=== PATIENT | female | born 1990 | race Hispanic/Latino ===

== ENCOUNTER → 2022-01-25 13:34 | Outpatient (CLI) | payer OTHER, SELFPAY ==
[2022-01-25 14:47] LABS: HCG Quantitative /Beta subunit 9168.6 mIU/mL
== END ==
PROVIDERS: Referring Provider Obstetrics & Gynecology; Visit Provider Obstetrics & Gynecology
DX: N96 Recurrent pregnancy loss (principal); O26.899 Other specified pregnancy related conditions, unspecified trimester; R10.2 Pelvic and perineal pain
CPT/HCPCS: 36415; 84702

== ENCOUNTER → 2022-01-27 13:38 | Outpatient (CLI) | payer OTHER, SELFPAY ==
[2022-01-27 14:56] LABS: HCG Quantitative /Beta subunit 12372 mIU/mL
== END ==
PROVIDERS: Referring Provider Obstetrics & Gynecology; Visit Provider Obstetrics & Gynecology
DX: N96 Recurrent pregnancy loss (principal); O26.899 Other specified pregnancy related conditions, unspecified trimester; R10.2 Pelvic and perineal pain
CPT/HCPCS: 36415; 84702

== ENCOUNTER 2022-01-29 22:42 | Emergency (ER) | payer OTHER, SELFPAY ==
[2022-01-29 22:47] VITALS: BP 136/74; PULSE 72; RESP 16; TEMP 36.2; O2SAT 99; BMI 26.5
--- NOTE | 2022-01-29 23:06 | DI.US.S_ITS ---
PROCEDURE: US OB <= 14 WEEKS FETUS INDICATIONS: 6 weeks, bright red blood vaginal bleeding. OUTSIDE/PRIOR DATING DATA: Last menstrual period (LMP): 12/15/2021. LMP-based estimated date of delivery (TIMMY): 09/21/2022. First dating scan (date and location): 01/28/2022. Estimated date of delivery (TIMMY) from first dating scan: 09/22/2022. TECHNIQUE: Real-time scanning was performed of the fetus and maternal pelvic organs, with image documentation. Endovaginal scanning was also performed to better visualize the fetus and maternal ovaries. COMPARISON: [facility], US, US PELVIC COMPLETE, 01/28/2022, 10:23. FINDINGS: Embryo: [place]-rump length measuring 0.42 cm. Gestational age 6 weeks 1 day. Heart rate: 75 bpm. The yolk sac is not identified. The gestational sac is slightly irregular. Maternal organs: Ovaries are within normal limits. IMPRESSION: 1. Sarkar living intrauterine at 6 weeks 1 day based on today's crown rump length. heart rate 75 bpm is slower than expected. The gestational sac is somewhat irregular. 2. No perigestational hemorrhage. Recommend short-term follow-up OB ultrasound. We strive to produce accurate, complete, and clear reports of imaging services. To assist us in improving patient care, this report was composed using standard report templates and voice recognition software. Therefore, it may contain abnormal punctuation, insertions and/or omissions. Occasional wrong-word or sound-alike substitutions may occur. Though we review the report and make efforts to correct it, we do recommend that the report be read carefully in proper context to recognize any text inaccuracies. Dictated by: Trent Brar M.D. on 01/30/2022 at 0:47 Approved by: Trent Brar M.D. on 01/30/2022 at 0:50
[2022-01-29 23:34] LABS: Add Manual Diff / Slide Review NO; Basophils Absolute Auto 0 /uL (0-100); Basophils Percent Auto 0.5 % (0-2); Eosinophils Absolute Auto 100 /uL (0-450); Eosinophils Percent Auto 1.4 % (2-4); Hemoglobin 13.5 g/dL (12.0-16.0); Lymphocytes Absolute Auto 2200 /uL (1100-4500); Mean Corpuscular HGB Conc 35.5 % (30-36); Mean Corpuscular Hemoglobin 31.9 PG (26-34); Mean Corpuscular Volume 89.8 fL (80-100); Monocytes Absolute Auto 900 /uL (0-900); Monocytes Percent Auto 10.9 % (3-14); Neutrophils Absolute Auto 4900 /uL (1500-7000); Neutrophils Percent Auto 60.2 % (50-75); Platelet Count 187 X10^3/uL (150-400); Red Blood Cell Count 4.23 X10^6/uL (4.0-5.2); White Blood Cell Count 8.1 X10^3/uL (4.5-11.0)
[2022-01-29 23:40] LABS: Alanine Aminotransferase 15 IU/L (<35); Albumin Globulin Ratio 1.4 (1.0-2.8); Alkaline Phosphatase 37 U/L (38-126); Aspartate Aminotransferase 21 IU/L (14-36); BUN Creatinine Ratio 26.2 (6-22); Bilirubin Total 0.3 mg/dL (0.2-1.3); Blood Urea Nitrogen 16 mg/dL (7-17); Calcium 9.1 mg/dL (8.4-10.2); Carbon Dioxide 24 mmol/L (22-32); Chloride 105 mmol/L (98-107); Estimated Glomerular Filt Rate > 60 mL/min (>60); Globulin 2.9 g/dL (1.7-4.1); Glucose 92 mg/dL (70-100); HEMOLYSIS < 15 (0-50); Sodium 137 mmol/L (137-145); Total Protein 6.9 g/dL (6.3-8.2)
[2022-01-29 23:57] LABS: HCG Quantitative /Beta subunit 16159 mIU/mL
[2022-01-30 00:53] LABS: Bacteria Urine Few (2-10); Culture Indicated Urine Specimen Cultured; RBC Urine None Seen (0-5/HPF); WBC Urine 1-5/HPF (0-5/HPF)
--- NOTE | 2022-01-30 01:12 | ED.GENADULT ---
HPI - General Adult General Chief complaint: Vaginal Bleeding Stated complaint: vaginal bleeding six weeks Time Seen by Provider: 01/29/22 23:34 Source: patient and family Mode of arrival: Ambulatory History of Present Illness HPI narrative: Patient is a 31-year-old female. Is a at approximately 6 weeks EGA. She has had 5 prior spontaneous miscarriages. She was on aspirin and progesterone prior to this . Had a positive test approximately 3 weeks ago. Did have a ultrasound yesterday in the lining machine operator clinic. She was told that the fetus was that appropriate size for its gestation however the sac appeared ?irregular ?she states that earlier today she started having some vaginal bleeding. She was also having some cramping like menstrual cramps. She denies any fevers. No change in bowel habits. No urinary symptoms. Related Data Home Medications Medication Instructions Recorded Confirmed prenat.vits,rusty,tvd-ggso-hiedr 1 tab PO DAILY 01/28/22 01/28/22 progesterone micronized 200 mg 100 mg PO DAILY cap 01/28/22 capsule (Prometrium) Previous Rx's Medication Instructions Recorded aspirin 81 mg tablet,delayed 81 mg PO DAILY #90 tab 09/08/21 release Allergies Allergy/AdvReac Type Severity Reaction Status Date / Time No Known Drug Allergies Allergy Unverified 01/28/22 10:11 Review of Systems Cardiovascular Cardiovascular: Reports system reviewed and no additional complaints, except as documented Respiratory Respiratory: Reports system reviewed and no additional complaints, except as documented Gastrointestinal Gastrointestinal: Reports as per HPI and Reports system reviewed and no additional complaints, except as documented Genitourinary Genitourinary: Reports system reviewed and no additional complaints, except as documented and Reports as per HPI Integumentary/Breasts Skin/Breast: Reports system reviewed and no additional complaints, except as documented Hematologic/Lymphatic On Anticoagulants: No Patient History Medical History History of recurrent miscarriages Surgical History (Updated 11/08/21 @ 08:16 by Chitra Benson MD) History of dilatation and curettage [place] teeth extracted Social History Smoking Status: Never smoker Smoking Status: Never smoker alcohol intake frequency: holidays/special occasions only Substance Use Type: does not use Exam Initial Vital Signs Initial Vital Signs: Vital Signs Temperature 97.2 F L 01/29/22 22:47 Pulse Rate 72 01/29/22 22:47 Respiratory Rate 16 01/29/22 22:47 Blood Pressure 136/74 01/29/22 22:47 Pulse Oximetry 99 01/29/22 22:47 [facility] Head: normal to inspection and normocephalic Resp Effort & Inspection: normal respiratory effort Cardio Rate: regular rate GI Inspection: non-distended Palpation: soft, No firm and No guarding Skin General: no rashes or lesions noted Neuro General: patient alert, patient awake, patient oriented x3 and moves all extremities Extrem General: normal to inspection and capillary refill normal Course Orders Ordered: ED Orders 01/29/22 23:06 US OB <= 14 weeks fetus Stat 01/29/22 23:20 ABO RH Type Stat Complete Blood Count AUTO DIFF Stat Comprehensive Metabolic Panel Stat HCG Quantitative /Beta subunit Stat 01/29/22 23:40 Urine Culture Stat Urine Microscopic Stat Vital Signs Vital signs: Vital Signs - 8 hr 01/29/22 22:47 Temperature 97.2 F L Pulse Rate 72 Respiratory Rate 16 Blood Pressure 136/74 Pulse Oximetry 99 Medical Decision Making Medical Records Medical records reviewed: Yes I reviewed the patient's medical records. Lab Data Lab results reviewed: Yes I reviewed the patient's lab results. Result diagrams: 01/29/22 23:20 01/29/22 23:20 Labs: Lab Results 01/29/22 01/29/22 01/29/22 Range/Units 23:20 23:20 23:20 WBC 8.1 (4.5-11.0) X10^3/uL RBC 4.23 (4.0-5.2) X10^6/uL Hgb 13.5 (12.0-16.0) g/dL Hct 38.0 (36-46) % MCV 89.8 (80-100) fL MCH 31.9 (26-34) PG MCHC 35.5 (30-36) % RDW 12.0 (11.6-14.8) % Plt Count 187 (150-400) X10^3/uL Neut % (Auto) 60.2 (50-75) % Lymph % (Auto) 27.0 (25-40) % [place] % (Auto) 10.9 (3-14) % Eos % (Auto) 1.4 L (2-4) % Baso % (Auto) 0.5 (0-2) % Neut # (Auto) 4900 (5580-6037) /uL Lymph # (Auto) 2200 (1242-6091) /uL [place] # (Auto) 900 (0-900) /uL Eos # (Auto) 100 (0-450) /uL Baso # (Auto) 0 (0-100) /uL Sodium 137 (137-145) mmol/L Potassium 4.0 (3.4-5.1) mmol/L Chloride 105 (98-107) mmol/L Carbon Dioxide 24 (22-32) mmol/L BUN 16 (7-17) mg/dL Creatinine 0.61 (0.52-1.04) mg/dL Estimated GFR > 60 (>60) mL/min BUN/Creatinine Ratio 26.2 H (6-22) Glucose 92 (70-100) mg/dL Calcium 9.1 (8.4-10.2) mg/dL Total Bilirubin 0.3 (0.2-1.3) mg/dL AST 21 (14-36) IU/L ALT 15 (<35) IU/L Alkaline Phosphatase 37 L (38-126) U/L Total Protein 6.9 (6.3-8.2) g/dL Albumin 4.0 (3.5-5.0) g/dL Globulin 2.9 (1.7-4.1) g/dL Albumin/Globulin Ratio 1.4 (1.0-2.8) HCG, Quant 19698 mIU/mL Urine RBC (0-5/HPF) Urine WBC (0-5/HPF) Urine Bacteria (None) Ur Culture Indicated? Blood Type A Positive 01/29/22 Range/Units 23:40 WBC (4.5-11.0) X10^3/uL RBC (4.0-5.2) X10^6/uL Hgb (12.0-16.0) g/dL Hct (36-46) % MCV (80-100) fL MCH (26-34) PG MCHC (30-36) % RDW (11.6-14.8) % Plt Count (150-400) X10^3/uL Neut % (Auto) (50-75) % Lymph % (Auto) (25-40) % [place] % (Auto) (3-14) % Eos % (Auto) (2-4) % Baso % (Auto) (0-2) % Neut # (Auto) (6689-9772) /uL Lymph # (Auto) (5983-8762) /uL [place] # (Auto) (0-900) /uL Eos # (Auto) (0-450) /uL Baso # (Auto) (0-100) /uL Sodium (137-145) mmol/L Potassium (3.4-5.1) mmol/L Chloride (98-107) mmol/L Carbon Dioxide (22-32) mmol/L BUN (7-17) mg/dL Creatinine (0.52-1.04) mg/dL Estimated GFR (>60) mL/min BUN/Creatinine Ratio (6-22) Glucose (70-100) mg/dL Calcium (8.4-10.2) mg/dL Total Bilirubin (0.2-1.3) mg/dL AST (14-36) IU/L ALT (<35) IU/L Alkaline Phosphatase (38-126) U/L Total Protein (6.3-8.2) g/dL Albumin (3.5-5.0) g/dL Globulin (1.7-4.1) g/dL Albumin/Globulin Ratio (1.0-2.8) HCG, Quant mIU/mL Urine RBC None seen (0-5/HPF) Urine WBC 1-5/hpf (0-5/HPF) Urine Bacteria Few (2-10) H (None) Ur Culture Indicated? Specimen cultured Blood Type Point of Care Testing Test Results Positive Urine Dip Bedside Urine Glucose Negative Bedside Urine Bilirubin - Negative Bedside Urine Ketone - Negative Urine Specific [place] 1.025 Bedside Urine Occult Blood ++ Bedside Urine pH 6.0 Bedside Urine Protein - Negative Bedside Urine Urobilinogen - Negative Bedside Urine Nitrite - Negative Bedside Urine Leukocytes + 70 Esterase Point of care testing: Point of Care Testing Test Results Positive Urine Dip Bedside Urine Glucose Negative Bedside Urine Bilirubin - Negative Bedside Urine Ketone - Negative Urine Specific [place] 1.025 Bedside Urine Occult Blood ++ Bedside Urine pH 6.0 Bedside Urine Protein - Negative Bedside Urine Urobilinogen - Negative Bedside Urine Nitrite - Negative Bedside Urine Leukocytes + 70 Esterase Imaging Data US - OB: Radiologist's Impression: [address] [address] Ultrasound Report Signed Patient: Cherelle Silva MR#: [id number] : 1990 Acct:[id number] Age/Sex: 31 / F Date of Service: 01/29/22 Loc: ED Accession Number: [id number] ?? Procedure: US OB <= 14 weeks fetus Ordering Provider: Cristóbal Soto D.O. PROCEDURE:? US OB <= 14 WEEKS FETUS ? INDICATIONS:? 6 weeks, bright red blood vaginal bleeding. ? OUTSIDE/PRIOR DATING DATA:? Last menstrual period (LMP):? 12/15/2021.? LMP-based estimated date of delivery (TIMMY):? 09/21/2022.? First dating scan (date and location):? 01/28/2022.? Estimated date of delivery (TIMMY) from first dating scan:? 09/22/2022. ? TECHNIQUE:? Real-time scanning was performed of the fetus and maternal pelvic organs, with image documentation.? Endovaginal scanning was also performed to better visualize the fetus and maternal ovaries.? ? COMPARISON:? [facility], , US PELVIC COMPLETE, 01/28/2022, 10:23. ? FINDINGS:? ? Embryo:? [place]-rump length measuring 0.42 cm.? Gestational age 6 weeks 1 day.? Heart rate:? 75 bpm. The yolk sac is not identified.? The gestational sac is slightly irregular. ? Maternal organs:? Ovaries are within normal limits. ? ? ? IMPRESSION:? 1. Sarkar living intrauterine at 6 weeks 1 day based on today's crown rump length.? heart rate 75 bpm is slower than expected.? The gestational sac is somewhat irregular.? ? 2. No perigestational hemorrhage. ? Recommend short-term follow-up OB ultrasound. ? We strive to produce accurate, complete, and clear reports of imaging services. To assist us in improving patient care, this report was composed using standard report templates and voice recognition software. Therefore, it may contain abnormal punctuation, insertions and/or omissions. Occasional wrong-word or sound-alike substitutions may occur. Though we review the report and make efforts to correct it, we do recommend that the report be read carefully in proper context to recognize any text inaccuracies. ? Dictated by: Trent Brar M.D. on 01/30/2022 at 0:47 ? ? Approved by: Trent Brar M.D. on 01/30/2022 at 0:50?? MDM Narrative Medical decision making narrative: Patient's ultrasound today does show a intrauterine with a heart rate of 75 which is lower than we would expect for this gestational age. Patient's vital signs are unremarkable. Labs unremarkable. Patient is Rh positive. She has a follow-up with lining machine operator on of next week. I discussed the findings the ultrasound with the patient and her who is at bedside. Did discuss that the heart rate of 75 his somewhat concerning given the gestational age. Informed her that her appointment on of next week would be appropriate left she develops any new or worsening symptoms. She was given return precautions. She expressed understanding and agreement. Discharge Plan Departure Patient Disposition: Home Clinical Impression: Threatened miscarriage Instructions: DI for Vaginal Bleeding Activity Restrictions/Additional Instructions: Continue to take all of your medications as directed. Keep all of your scheduled medical appointments. Return to the emergency department for any new or worsening symptoms Prescriptions: No Action aspirin 81 mg tablet,delayed release (DR/EC) 81 mg PO DAILY Qty: 90 3RF prenat.vits,rusty,wxx-ckim-yyscv Tablet 1 tab PO DAILY 0RF progesterone micronized [Prometrium] 200 mg capsule 100 mg PO DAILY 0RF Referrals: Miscellaneous,Doctor, [Primary Care Provider] -
== END 2022-01-30 01:16 | disposition home or self-care (01) ==
PROVIDERS: Emergency Provider Emergency Medicine
DX: O20.0 Threatened abortion (principal); Z3A.01 Less than 8 weeks gestation of pregnancy
CPT/HCPCS: 36415; 76801; 76817; 80053; 81003; 81015; 81025; 84702; 85025; 86900; 86901; 87086; 99283; 99284

== ENCOUNTER 2022-02-19 13:52 | Day surgery (SDC) | payer OTHER, SELFPAY ==
[2022-02-19] VITALS (7 sets, daily range): BP systolic 100–124; BP diastolic 59–85; PULSE 68–87; RESP 12–20; TEMP 36.5–36.7; O2SAT 98–99
--- NOTE | 2022-02-19 | PATH_ITS ---
[facility] Accession Number: [id number] . 01 Material submitted: . product of conception - PRODUCTS OF CONCEPTION . 02 Diagnosis: Products of Conception: Products of conception identified. [facility] 02/23/2022 101 Local . 02 Electronically signed: . Gladis Bronson MD, Pathologist NPI- [id number] . 01 Gross description: . Received in formalin, labeled with the patient's name and designated products of conception, is 6.5 x 4.0 x 1.5 cm aggregate of red-[place], friable tissue fragments and hemorrhagic material. Villous tissue is identified. parts are not identified. Environmental Resource Specialist sections of villous tissue are submitted in cassette A1. (IGNACIO:[id number]) /FRR 02/20/2022 2018 Local . 02 Pathologist provided ICD-10: O02.1 . 02 CPT . 156327 Specimen Comment: A courtesy copy of this report has been sent to [phone] Performed at: [address] [facility] Cyt[facility] [address] [facility], [place], [place] [id number] MD Brad Mortensen MD Phone: [phone] Performed at: 02 [facility] [place] [address] [place], [place] [id number] MD oDnya Diaz MD Phone: [phone]
[2022-02-19 14:28] LABS: COVID19 -Nasal RAPID Negative (Negative)
[2022-02-19] MEDS: LACTATED RINGERS 1,000 ML 42 ML IV (15:57)
--- NOTE | 2022-02-19 16:05 | P.HP_ITS ---
History of Present Illness History of Present Illness Date Patient Seen: 02/19/22 Time Patient Seen: 16:05 Chief complaint: SUCTION D&C Narrative: Patient is a 31-year-old 5 para 0 who presents for suction D&C due to a missed at 7 weeks gestation. Patient presented for a new OB visit today. She did have some brown and pink discharge about a week ago. Had an ultrasound at that time which showed a viable intrauterine . Patient History Medical History (Updated 02/18/22 @ 11:02 by Elvia Guy RN) Anxiety (~2011) Colon polyps (~2018) Depression (~2011) History of recurrent miscarriages Surgical History (Updated 02/03/22 @ 13:56 by Monika Dalton) Anesthesia History of dilatation and curettage [place] teeth extracted Family & Social History Family History (Updated 02/18/22 @ 16:00 by Elvia Guy RN) Mother Depression Anxiety Mental health problem Hypothyroid Brother Depression Anxiety Diabetes mellitus Hypertension Hyperlipidemia Mental health problem Grandmother Anxiety Depression Diabetes mellitus Grandfather Heart disease Hyperlipidemia Diabetes mellitus Grandfather Heart disease Hyperlipidemia Grandmother Heart disease Hyperlipidemia Social History: household members spouse lives independently Yes Tobacco & Substance use: Smoking Status Never smoker alcohol intake former alcohol intake frequency holiday/special occasion Substance Use Type does not use Meds Home Medications and Allergies Home Medications Medication Instructions Recorded Confirmed Type aspirin 81 mg tablet,delayed 81 mg PO DAILY #90 tab 09/08/21 02/19/22 Rx release prenat.vits,rusty,kvc-pwqt-xqgow 1 tab PO DAILY 01/28/22 02/19/22 History progesterone micronized 200 mg 100 mg PO DAILY cap 01/28/22 02/19/22 History capsule (Prometrium) cholecalciferol (vitamin D3) 25 25 mcg PO DAILY 02/18/22 02/19/22 History mcg (1,000 unit) capsule doxylamine succinate 25 mg tablet 25 mg PO BEDTIME 02/18/22 02/19/22 History pyridoxine (vitamin B6) 100 mg 100 mg PO DAILY tab 02/18/22 02/19/22 History tablet Allergies Allergy/AdvReac Type Severity Reaction Status Date / Time No Known Drug Allergies Allergy Unverified 02/18/22 15:53 Exam Vital Signs (past 8 hours): - 02/19/22 14:18 Temperature 98.1 F Pulse Rate 83 Respiratory Rate 20 Blood Pressure 118/73 Pulse Oximetry 98 Oxygen Delivery Method Room Air Narrative Exam Narrative: HEENT: No thyromegaly, no anterior cervical or supraclavicular lymphadenopathy. Lungs:Clear to auscultation bilaterally, no wheezes. Cardiovascular: Regular rate and rhythm, no murmurs, rubs, or gallops. Abdomen: No scars. No hepatosplenomegaly. No masses palpable. External genitalia: Normal Vagina: Normal Cervix: Normal Bimanual exam: 7 Week size uterus. Mobile. No adnexal masses or tenderness Extremities: No edema Objective Labs Labs: Laboratory Results - last 24 hr 02/19/22 13:57 SARS-CoV-2 (PCR) Negative Assessment & Plan Assessment & Plan narrative: Assessment: 31-year-old 5 para 0 with a missed at 7 weeks gestation Plan: Suction D&C The risks, benefits, and alternatives to the procedure were explained to the patient. The risks including bleeding, infection, and uterine perforation. She understands these risks and agrees to proceed. A full par Q was held and consent form was signed. No blood for hinduism regions, per the patient. COVID-19 COVID-19 status: Negative Result date/Date tested (Pos, Neg/Pending): 02/19/22 Time Spent With Patient Time with patient: less than 30 minutes Critical Care time: I spent a total of [] minutes of critical care time on this patient's care today; this time is exclusive of procedural time.
--- NOTE | 2022-02-19 16:07 | PM.PREOP ---
Pre-operative Note COVID-19 COVID-19 status: Negative Result date/Date tested (Pos, Neg/Pending): 02/19/22 Criteria for continued procedure: Non-surgical alternatives not available or appropriate per current SOC Interval Note History & Physical reviewed/Exam performed by Physician: Yes Changes to H&P: No H&P completed within 30 days and has changed as indicated here:: 02/19/22
--- NOTE | 2022-02-19 16:19 | SUR.OPER ---
Lithotomy on padded OR bed, head on pillow, arms secured on padded arm boards at <90 degrees abduction. Legs secured in padded yellow fins stirrups.
--- NOTE | 2022-02-19 16:53 | P.OP_ITS ---
Operative Date/Time/Diagnoses Date of procedure: 02/19/22 Time of procedure: 16:54 Pre-op diagnosis: Missed Ab at 7 weeks Post-op diagnosis: same Procedure & Clinicians Procedure: Procedures Operation Date: 02/19/22 15:30 Actual Procedure Side Surgeon p Suction, Dilation and Curettage Chitra Benson MD Indications: Missed Ab at 7 weeks gestation Surgeon: Chitra Benson Anesthesia Type: General (LMA) Operative Notes Findings: 7 week size anteverted uterus Large amount of products of conception Specimen(s): products of conception Estimated blood loss (mL): 50 Procedure in detail: After informed consent was obtained, the patient was taken to the operating room where she was placed in the dorsal supine position. After adequate LMA general anesthesia was achieved, she was placed in the dorsal lithotomy position, and prepped and draped in the usual sterile fashion. A time-out was performed. A bivalve speculum was placed into the vagina and the anterior lip of the cervix was grasped with a single-tooth tenaculum. The cervical os was sequentially dilated until the # 7 curved plastic curette could pass easily into the endometrial cavity. Several passes with suction revealed a large amount of fluid and tissue. The suction curette was removed. Sharp curettage was pe rformed yielding a moderate amount of tissue. Several more passes resulted in some tissue and blood. The last pass was blood only. The curette was removed from the uterus. The single-tooth tenaculum was removed from the anterior lip of the cervix there was minimal amount of bleeding coming from the cervical os. The bivalve speculum was removed from the vagina. Sponge, lap, and instrument counts were correct x2. The patient tolerated the procedure well, and was taken to PACU in stable condition. Complications: none Post-operative Condition: stable Disposition: PACU Plan for aftercare: Home after recovery
--- NOTE | 2022-02-19 17:09 | PM.OBPNLAB ---
Date/Time Date Patient Seen: 02/19/22 Time Patient Seen: 17:09 Pain Control Pain control: tolerating well Pelvic Exam Dilation (cm): 5 Effacement (%): 80 station: 0 Amniotic membrane status: Ruptured Contractions Contractions on admission: none Monitor mode: External Pitocin rate (mU/min): 15 Contraction frequency (min): 3 Contraction duration (min): 1 Contraction pattern: Regular Contraction intensity: Strong/Firm Status status: Category l Heart Rate Baseline: 125 Monitor Accelerations: Present Monitor Decelerations: Absent Monitor Variability: Moderate Assessment and Plan Assessment: active labor Plan: continuous present management Comments: Expectant management to
--- NOTE | 2022-02-19 17:35 | SUR.PHASEII ---
discharge instructions reviewed with pt and she verbalized understanding.
== END 2022-02-19 17:49 | disposition home or self-care (01) ==
PROVIDERS: PCP Student in an Organized Health Care Education/Training Program; Referring Provider Obstetrics & Gynecology; Visit Provider Obstetrics & Gynecology
PROC: (CPT 58120; principal; 2022-02-19 15:30)
DX: O02.1 Missed abortion (principal); Z3A.01 Less than 8 weeks gestation of pregnancy; Z20.822 Contact with and (suspected) exposure to COVID-19
CPT/HCPCS: 59820; 87635; J2250; J3010

== ENCOUNTER → 2022-06-30 13:47 | Outpatient (CLI) | payer OTHER, SELFPAY ==
[2022-06-30 14:54] LABS: COVID19 -Nasal RAPID Negative (Negative)
== END ==
PROVIDERS: PCP Student in an Organized Health Care Education/Training Program; Visit Provider Obstetrics & Gynecology
DX: Z01.812 Encounter for preprocedural laboratory examination (principal); Z20.822 Contact with and (suspected) exposure to COVID-19
CPT/HCPCS: 87635

== ENCOUNTER 2022-07-01 08:31 | Day surgery (SDC) | payer OTHER, SELFPAY ==
[2022-06-29 14:04] VITALS: BMI 26.7
[2022-07-01 08:54] VITALS: BMI 26.7
[2022-07-01 09:13] VITALS: BP 117/77; PULSE 70; RESP 16; TEMP 36.3; O2SAT 99
[2022-07-01] MEDS: LACTATED RINGERS 1,000 ML 100 ML IV (09:15)
--- NOTE | 2022-07-01 10:53 | PM.HP.1 ---
History of Present Illness History of Present Illness Date Patient Seen: 07/01/22 Time Patient Seen: 10:53 Chief complaint: DX HYSTEROSCOPY W/POSS RESECTION OF SYNECHIAL Narrative: Patient is a 31-year-old 5 para 0 who presents for a D&C hysteroscopy due to recurrent losses. Infertility specialists would like to rule out a septum or synechiae. Patient History Medical History (Updated 06/29/22 @ 14:10 by Karishma Sanchez RN) Anxiety (~2011) Colon polyps (~2018) Depression (~2011) History of recurrent miscarriages No blood products Surgical History (Updated 06/29/22 @ 14:05 by Karishma Sanchez RN) Anesthesia History of dilatation and curettage Hx of dilation and curettage (02/19/22) [place] teeth extracted Family & Social History Family History (Updated 02/18/22 @ 16:00 by Elvia Guy RN) Mother Depression Anxiety Mental health problem Hypothyroid Brother Depression Anxiety Diabetes mellitus Hypertension Hyperlipidemia Mental health problem Grandmother Anxiety Depression Diabetes mellitus Grandfather Heart disease Hyperlipidemia Diabetes mellitus Grandfather Heart disease Hyperlipidemia Grandmother Heart disease Hyperlipidemia Social History: household members spouse lives independently Yes Tobacco & Substance use: Smoking Status Never smoker alcohol intake former alcohol intake frequency holiday/special occasion Substance Use Type does not use Meds Home Medications and Allergies Home Medications Medication Instructions Recorded Confirmed Type prenat.vits,rusty,jax-qnpx-rbule 1 tab PO DAILY 01/28/22 07/01/22 History cholecalciferol (vitamin D3) 25 25 mcg PO DAILY 02/18/22 07/01/22 History mcg (1,000 unit) capsule Allergies Allergy/AdvReac Type Severity Reaction Status Date / Time No Known Drug Allergies Allergy Verified 07/01/22 08:53 Exam Vital Signs (past 8 hours): - 07/01/22 09:13 Temperature 97.3 F L Pulse Rate 70 Respiratory Rate 16 Blood Pressure 117/77 Pulse Oximetry 99 Oxygen Delivery Method Room Air Oxygen Delivery Method Room Air Narrative Exam Narrative: HEENT: No thyromegaly, no anterior cervical or supraclavicular lymphadenopathy. Lungs:Clear to auscultation bilaterally, no wheezes. Cardiovascular: Regular rate and rhythm, no murmurs, rubs, or gallops. Abdomen: No scars. No hepatosplenomegaly. No masses palpable. External genitalia: Normal Vagina: Normal Cervix: Normal Bimanual exam: 7 Week size anteverted uterus. Mobile. No adnexal masses or tenderness. Extremities: No edema Assessment & Plan Assessment & Plan narrative: Assessment: 31-year-old 5 para 0 with recurrent losses Negative workup so far Plan: D&C hysteroscopy with possible resection of septum or synechiae The risks, benefits, and alternatives to the procedure were explained to the patient. The risks including bleeding, infection, and uterine perforation. She understands these risks and agrees to proceed. A full par Q was held and consent form was signed. COVID-19 COVID-19 status: Negative Result date/Date tested (Pos, Neg/Pending): 06/30/22 Time Spent With Patient Time with patient: less than 30 minutes Critical Care time: I spent a total of [] minutes of critical care time on this patient's care today; this time is exclusive of procedural time.
--- NOTE | 2022-07-01 10:56 | PM.PREOP ---
Pre-operative Note COVID-19 COVID-19 status: Negative Result date/Date tested (Pos, Neg/Pending): 06/30/22 Criteria for continued procedure: Non-surgical alternatives not available or appropriate per current SOC Interval Note History & Physical reviewed/Exam performed by Physician: Yes Changes to H&P: No H&P completed within 30 days and has changed as indicated here:: 07/01/22
--- NOTE | 2022-07-01 11:19 | SUR.OPER ---
Lithotomy on padded OR bed, head on pillow, arms secured on padded arm boards at <90 degrees abduction. Legs secured in padded yellow fins stirrups.
--- NOTE | 2022-07-01 11:19 | SUR.OPER ---
PREVIOUS CASE CONVERTED TO OPEN
[2022-07-01 11:25] VITALS: BP 104/62; PULSE 54; RESP 16; TEMP 36.8; O2SAT 96
[2022-07-01 11:30] VITALS: BP 100/63; PULSE 59; RESP 14; O2SAT 95
--- NOTE | 2022-07-01 11:33 | PM.GYNOP.1 ---
Operative Date/Time/Diagnoses Date of procedure: 07/01/22 Time of procedure: 11:34 Pre-op diagnosis: Recurrent loss Post-op diagnosis: same Procedure & Clinicians Procedure: Procedures Operation Date: 07/01/22 10:15 <No data on this case meets the specified criteria> D&C hysteroscopy Indications: Recurrent loss Surgeon: Chitra Benson Anesthesia Type: General (LMA) Operative Notes Findings: 7 week size anteverted uterus Both fallopian tube ostia observed No polyps, septum, fibroids Closure Type: not applicable Specimen(s): none Estimated blood loss (mL): 10 Blood products transfused: none Procedure in detail: After informed consent was obtained, the patient was taken to the operating room where she was placed in the dorsal supine position. After adequate LMA general anesthesia was achieved, she was placed in the dorsal lithotomy position, and prepped and draped in the usual sterile fashion. A time-out was performed. A bivalve speculum was placed into the vagina and the anterior lip of the cervix grasped with a single-tooth tenaculum. The cervical os was sequentially dilated until the hysteroscope could pass easily into the endometrial cavity. Initial inspection with the hysteroscope revealed both fallopian tube ostia. No septum, polyps, or fibroids. The hysteroscope was removed. The single-tooth tenaculum was removed from the anterior lip of the cervix. The bivalve speculum was removed from the vagina. Sponge, lap, and instrument counts were correct x2. The patient tolerated the procedure well, and was taken to PACU in stable condition. Complications: none Post-operative Condition: stable Disposition: PACU Plan for aftercare: Home after recovery
[2022-07-01 11:35] VITALS: BP 102/66; PULSE 56; RESP 14; O2SAT 95
[2022-07-01 11:40] VITALS: BP 99/60; PULSE 56; RESP 12; O2SAT 96
[2022-07-01] MEDS: KETOROLAC 30 MG/ML VIAL IV (11:59)
[2022-07-01 12:04] VITALS: BP 105/69; PULSE 70; RESP 16; O2SAT 99
== END 2022-07-01 12:24 | disposition home or self-care (01) ==
PROVIDERS: PCP Student in an Organized Health Care Education/Training Program; Referring Provider Obstetrics & Gynecology; Visit Provider Obstetrics & Gynecology
PROC: 0UDB8ZZ Extraction of Endometrium, Via Natural or Artificial Opening Endoscopic (ICD-10-PCS; CPT 58558; principal; 2022-07-01 10:15)
DX: N96 Recurrent pregnancy loss (principal)
CPT/HCPCS: 58558; 81025; J1100; J1885; J2250; J2405; J3010

== ENCOUNTER → 2022-12-26 13:13 | Outpatient (CLI) | payer OTHER, SELFPAY | PROVIDERS: PCP Student in an Organized Health Care Education/Training Program; Visit Provider Registered Nurse | DX: J02.9 Acute pharyngitis, unspecified (principal) | CPT/HCPCS: 87070 ==

== ENCOUNTER 2023-03-13 16:42 | Emergency (ER) | payer OTHER, SELFPAY ==
[2023-03-13 16:46] VITALS: BP 135/73; PULSE 72; RESP 19; TEMP 36.1; O2SAT 97; BMI 23.8
--- NOTE | 2023-03-13 17:05 | DI.US.S_ITS ---
PROCEDURE: US PELVIC COMPLETE INDICATIONS: 5 WEEKS ; BLEEDING TECHNIQUE: Real-time scanning was performed of the pelvic organs, with image documentation. Additional endovaginal scanning was necessary due to incomplete visualization of the adnexal and endometrial structures by transabdominal scanning. COMPARISON: None. FINDINGS: Uterus: Uterus is retroverted and normal in size at 7.4 x 4.1 x 4.5 cm. The myometrium is homogeneous without suspicious mass. The endometrium measures 7.3 mm combined thickness. No gestational sac identified. Ovaries: The right ovary is not identified on today's exam. The left ovary measures 3.0 x 3.6 x 2.9 cm, with a calculated ovarian volume of 16.5 cc. Normal vascularity. Within the left ovary is a predominantly anechoic cystic lesion measuring 2.9 x 2.0 by 2.4 cm. There is layering echogenicity most consistent with a retractile clot. Other: No pathologic free abdominal or pelvic fluid. IMPRESSION: No intrauterine identified. No definitive ectopic . This is consistent with of unknown location. Recommend clinical correlation intra S[place] of HCGs with repeat ultrasound as clinically warranted. Left ovarian cystic lesion most consistent with a hemorrhagic cyst measuring 2.9 cm. Nonvisualization of the right ovary. We strive to produce accurate, complete, and clear reports of imaging services. To assist us in improving patient care, this report was composed using standard report templates and voice recognition software. Therefore, it may contain abnormal punctuation, insertions and/or omissions. Occasional wrong-word or sound-alike substitutions may occur. Though we review the report and make efforts to correct it, we do recommend that the report be read carefully in proper context to recognize any text inaccuracies. Dictated by: Kwaku Willis D.O. on 03/13/2023 at 17:35 Approved by: Kwkau Willis D.O. on 03/13/2023 at 17:39
--- NOTE | 2023-03-13 17:08 | ED.FEMALEGU ---
HPI - Female Genitourinary General Chief complaint: OB/Uterine Contractions Stated complaint: 5 W , Bleeding w/ cramping Time Seen by Provider: 03/13/23 16:55 Source: patient Mode of arrival: Family Vehicle History of Present Illness HPI Narrative: 32F nonsmoker without significant medical history is a at 5 weeks by dates. Her LMP is 02/02/23 and she had been followed by her primary care provider and after a few negative urine tests she had a serum quantitative HCG which was initially 73 and then jose to 81. She presents today because this morning she developed some lower abdominal and pelvic cramping and minimal spotting. She denies dizziness, weakness or lightheadedness. She is had no fever or chills. She has no chest pain or shortness of breath. She denies dysuria, frequency or urgency. Her blood type is A positive. Her last miscarriage was January 29. She is managed by Dr. Benson and had recently been started on Lovenox as it was thought that a induced hypercoagulable state was likely contributing to her unfortunate number of miscarriages.. Related Data Home Medications Medication Instructions Recorded Confirmed prenat.vits,rusty,vtm-hozz-auebu 1 tab PO DAILY 01/28/22 07/01/22 cholecalciferol (vitamin D3) 25 25 mcg PO DAILY 02/18/22 07/01/22 mcg (1,000 unit) capsule Previous Rx's Medication Instructions Recorded progesterone micronized 200 mg 200 mg PO DAILY #90 caps 07/22/22 capsule enoxaparin 40 mg/0.4 mL 40 mg (0.4 mL) SUBCUT DAILY #4 mL 02/21/23 subcutaneous syringe (Lovenox) Allergies Allergy/AdvReac Type Severity Reaction Status Date / Time No Known Drug Allergies Allergy Verified 03/13/23 16:52 Review of Systems Review of Systems Narrative: GENERAL: Denies chills, fatigue, malaise, fever, sweats. HEENT: Denies sinus pain, ear pain, sore throat, difficulty swallowing, dizziness. RESPIRATORY: Denies dyspnea, cough, wheezing, hemoptysis, sputum. CARDIOVASCULAR: Denies chest pain, palpitations, orthopnea, edema, GASTROINTESTINAL: Denies nausea, vomiting, abdominal pain, diarrhea, constipation, melena. : See HPI MUSCULOSKELETAL: denies weakness, joint pain, or bony pain SKIN: Denies rash, skin lesions, or other NEUROLOGIC: Denies weakness, headache, numbness, change in speech, confusion, seizures, incoordination. PSYCHIATRIC: No concerning psychosocial issues. 12 point review of systems is negative except for those stated above Patient History Medical History Anxiety (~2011) Colon polyps (~2019) Depression (~2011) History of recurrent miscarriages No blood products Surgical History Anesthesia History of dilatation and curettage Hx of dilation and curettage (02/19/22) [place] teeth extracted Family History Mother Depression Anxiety Mental health problem Hypothyroid Brother Depression Anxiety Diabetes mellitus Hypertension Hyperlipidemia Mental health problem Grandmother Anxiety Depression Diabetes mellitus Grandfather Heart disease Hyperlipidemia Diabetes mellitus Grandfather Heart disease Hyperlipidemia Grandmother Heart disease Hyperlipidemia alcohol intake frequency: holidays/special occasions only Substance Use Type: does not use Exam Narrative Exam Narrative: GENERAL: [32] year old patient appears stated age. Well-developed patient, in mild distress. HEAD: Atraumatic. Normocephalic. EYES: Pupils equal round and reactive. Extraocular motions intact. No scleral icterus. No injection or drainage. ENT: Nose without bleeding, purulent drainage. Throat without erythema, tonsillar hypertrophy or exudate. Airway patent. NECK: Trachea midline. Non tender CARDIOVASCULAR: Regular rate and rhythm without murmurs, gallops, or rubs. RESPIRATORY: Clear to auscultation. Breath sounds equal bilaterally. No wheezes, rales, or rhonchi. GASTROINTESTINAL: Abdomen soft, non-tender, nondistended. EXTREMITIES: No edema or joint tenderness. BACK: Nontender without deformity or crepitance. No flank tenderness. NEURO: AOx3. SKIN: No rash or erythema of visible areas Initial Vital Signs Initial Vital Signs: Vital Signs Temperature 97.0 F L 03/13/23 16:46 Pulse Rate 72 03/13/23 16:46 Respiratory Rate 19 03/13/23 16:46 Blood Pressure 135/73 03/13/23 16:46 Pulse Oximetry 97 03/13/23 16:46 Oxygen Delivery Method Room Air 03/13/23 16:46 Course Orders Ordered: ED Orders 03/13/23 17:05 US pelvic limited Stat Basic Metabolic Panel Stat Complete Blood Count AUTO DIFF Stat HCG Quantitative /Beta subunit Stat Vital Signs Vital signs: Vital Signs - 8 hr 03/13/23 16:46 Temperature 97.0 F L Pulse Rate 72 Respiratory Rate 19 Blood Pressure 135/73 Pulse Oximetry 97 Oxygen Delivery Method Room Air MDM - Female Genitourinary Lab Data 03/13/23 17:11 03/13/23 17:11 Labs: Lab Results 03/13/23 03/13/23 Range/Units 17:11 17:11 WBC 5.7 (4.5-11.0) X10^3/uL RBC 4.47 (4.0-5.2) X10^6/uL Hgb 13.9 (12.0-16.0) g/dL Hct 40.6 (36-46) % MCV 90.9 (80-100) fL MCH 31.1 (26-34) PG MCHC 34.2 (30-36) % RDW 12.0 (11.6-14.8) % Plt Count 190 (150-400) X10^3/uL Neut % (Auto) 52.0 (50-75) % Lymph % (Auto) 34.1 (25-40) % [place] % (Auto) 10.0 (3-14) % Eos % (Auto) 3.3 (2-4) % Baso % (Auto) 0.6 (0-2) % Neut # (Auto) 3000 (2033-2641) /uL Lymph # (Auto) 1900 (5825-5749) /uL [place] # (Auto) 600 (0-900) /uL Eos # (Auto) 200 (0-450) /uL Baso # (Auto) 0 (0-100) /uL Sodium 136 L (137-145) mmol/L Potassium 3.8 (3.4-5.1) mmol/L Chloride 105 (98-107) mmol/L Carbon Dioxide 25 (22-32) mmol/L BUN 11 (7-17) mg/dL Creatinine 0.68 (0.52-1.04) mg/dL Estimated GFR > 60 (>60) mL/min BUN/Creatinine Ratio 16.2 (6-22) Glucose 93 (70-100) mg/dL Calcium 9.1 (8.4-10.2) mg/dL HCG, Quant 275.9 mIU/mL MDM Narrative Medical decision making narrative: [32] year old patient presents with spotting and minor pelvic cramping Multiple etiologies for patient's symptoms considered including, but not limited to: [Implantation bleed versus early miscarriage versus ectopic versus other] Prior Charts reviewed in our EMR Primary Historian: patient Labs reviewed and interpreted by myself: Prior labs demonstrate a positive blood type, hCG to 75 Imaging reviewed: Ultrasound without significant findings, noted hCG is well below discriminatory zone Patient is a at about 5/6 weeks with cramping and spotting. HCG is growing, no findings on ultrasound though well below discriminatory zone. Unclear etiology at this time. Patient encouraged to follow closely with her care team, suggesting that hCG is expected to be above discriminatory zone in about 1 week at which point an ultrasound would be more useful, though follow-up before then to trend her hCG is recommended. Return precautions including heavier bleeding, worsening or more persistent pain fever, shaking chills or other concerning symptoms Findings and discharge diagnosis discussed with patient/family followed by verbalization of understanding Return precautions discussed with patient/family whom verbalize understanding of diagnosis and plan Discharge Plan Departure Patient Disposition: Home Clinical Impression: Hemorrhage affecting Activity Restrictions/Additional Instructions: *You have been diagnosed with [, spotting and cramping. Your HCG today is 275 which is moving in the right direction, but still too early to see anything on ultrasound. You will need to follow closely with your doctor to track what your HCG is doing and likely get an ultrasound in about 1 week ] *What to do: *Please continue to take your regular medications as directed. [ ] New medication prescriptions sent to your pharmacy: [ ] [ ] New medication written as a paper prescription [ ] No new medications given *Please follow up with your primary care provider in 2-3 days, call for an appointment. Let them know you were seen in the Emergency Department and that we ask that you be seen in follow up. We will electronically transmit a record of today's note if your PCP is in our system *Return to Emergency Department if you should have any new, worsening or concerning symptoms, such as [fever greater than 101 F, shaking chills, worsening pain, persistent vomiting, heavy bleeding or other bothersome symptoms] Prescriptions: No Action progesterone micronized 200 mg capsule 200 mg PO DAILY Qty: 90 0RF enoxaparin [Lovenox] 40 mg/0.4 mL syringe 40 mg SUBCUT DAILY Qty: 4 2RF prenat.vits,rusty,haw-qqhh-zfbic Tablet 1 tab PO DAILY cholecalciferol (vitamin D3) 25 mcg (1,000 unit) capsule 25 mcg PO DAILY Referrals: Leyda Bustillos MD [Primary Care Provider] - Chitra Benson MD [Physician] - Stand Alone Forms: Patient Portal/API
[2023-03-13 17:28] LABS: Add Manual Diff / Slide Review NO; Basophils Absolute Auto 0 /uL (0-100); Basophils Percent Auto 0.6 % (0-2); Eosinophils Absolute Auto 200 /uL (0-450); Eosinophils Percent Auto 3.3 % (2-4); Hematocrit 40.6 % (36-46); Hemoglobin 13.9 g/dL (12.0-16.0); Lymphocytes Absolute Auto 1900 /uL (1100-4500); Lymphocytes Percent Auto 34.1 % (25-40); Mean Corpuscular HGB Conc 34.2 % (30-36); Mean Corpuscular Hemoglobin 31.1 PG (26-34); Mean Corpuscular Volume 90.9 fL (80-100); Monocytes Absolute Auto 600 /uL (0-900); Neutrophils Absolute Auto 3000 /uL (1500-7000); Platelet Count 190 X10^3/uL (150-400); Red Blood Cell Count 4.47 X10^6/uL (4.0-5.2); White Blood Cell Count 5.7 X10^3/uL (4.5-11.0)
[2023-03-13 17:35] LABS: BUN Creatinine Ratio 16.2 (6-22); Blood Urea Nitrogen 11 mg/dL (7-17); Calcium 9.1 mg/dL (8.4-10.2); Carbon Dioxide 25 mmol/L (22-32); Chloride 105 mmol/L (98-107); Estimated Glomerular Filt Rate > 60 mL/min (>60); Glucose 93 mg/dL (70-100); HEMOLYSIS < 15 (0-50); Potassium 3.8 mmol/L (3.4-5.1); Sodium 136 mmol/L (137-145)
[2023-03-13 17:52] LABS: HCG Quantitative /Beta subunit 275.9 mIU/mL
[2023-03-13 19:02] VITALS: BP 125/68; PULSE 64; RESP 16; O2SAT 99
== END 2023-03-13 19:02 | disposition home or self-care (01) ==
PROVIDERS: Emergency Provider Emergency Medicine; PCP Student in an Organized Health Care Education/Training Program
DX: O46.91 Antepartum hemorrhage, unspecified, first trimester (principal); Z3A.01 Less than 8 weeks gestation of pregnancy
CPT/HCPCS: 36415; 76830; 76856; 80048; 84702; 85025; 93976; 99283; 99284

== ENCOUNTER → 2023-03-15 10:25 | Outpatient (CLI) | payer OTHER, SELFPAY ==
[2023-03-15 11:54] LABS: HCG Quantitative /Beta subunit 42.9 mIU/mL
== END ==
PROVIDERS: PCP Student in an Organized Health Care Education/Training Program; Referring Provider Obstetrics & Gynecology; Visit Provider Obstetrics & Gynecology
DX: N96 Recurrent pregnancy loss (principal); O46.90 Antepartum hemorrhage, unspecified, unspecified trimester
CPT/HCPCS: 36415; 84702

== ENCOUNTER → 2023-05-06 13:32 | Outpatient (CLI) | payer OTHER, SELFPAY ==
[2023-05-06 14:57] LABS: Free T4, Direct Thyroxine 0.76 ng/dL (0.78-2.19)
[2023-05-06 15:11] LABS: Thyroid Stimulating Hormone 1.13 uIU/mL (0.47-4.68)
[2023-05-09 15:18] LABS: Dilute Russell Viper Venom 32.9 sec (0.0-47.0); Lupus Reflex Interpretation Comment: (.); PTT-LA 34.2 sec (0.0-43.5)
== END ==
PROVIDERS: PCP Student in an Organized Health Care Education/Training Program; Referring Provider Obstetrics & Gynecology; Visit Provider Obstetrics & Gynecology
DX: N96 Recurrent pregnancy loss (principal)
CPT/HCPCS: 36415; 81240; 81241; 81291; 84144; 84439; 84443; 85598; 85613

== ENCOUNTER → 2023-07-11 09:46 | Outpatient (CLI) | payer OTHER, SELFPAY ==
[2023-07-11 11:55] LABS: Free T4, Direct Thyroxine 0.98 ng/dL (0.78-2.19)
[2023-07-11 12:09] LABS: Thyroid Stimulating Hormone 1.22 uIU/mL (0.47-4.68)
== END ==
PROVIDERS: PCP Student in an Organized Health Care Education/Training Program; Referring Provider Obstetrics & Gynecology; Visit Provider Obstetrics & Gynecology
DX: E03.9 Hypothyroidism, unspecified (principal)
CPT/HCPCS: 36415; 84439; 84443